=== PATIENT | male | born 1965 | race Caucasian/White ===

== ENCOUNTER 2017-04-05 13:32 | Emergency (ER) | payer OTHER ==
[2017-04-05 14:55] LABS: ABSOLUTE BASOPHILS # (AUTO) 0.1 10^3/uL (0.0-0.2); ABSOLUTE EOSINOPHILS # (AUTO) 0.2 10^3/uL (0.0-0.6); ABSOLUTE LYMPHOCYTES (AUTO) 2.3 10^3/uL (0.5-4.7); ABSOLUTE MONOCYTES (AUTO) 0.7 10^3/uL (0.1-1.4); ABSOLUTE NEUT (AUTO) 5.1 10^3/uL (1.7-8.2); BASOPHILS % (AUTO) 0.9 % (0-2); EOSINOPHILS % (AUTO) 1.8 % (0-6); HEMATOCRIT 48.8 % (37.9-51.0); HEMOGLOBIN 17.3 g/dL (13.5-17.0); HGB HCT DIFFERENCE 3.1; LYMPHOCYTES % (AUTO) 27.3 % (13-45); MEAN CORPUSCULAR HEMOGLOBIN 33.3 pg (27.0-33.4); MEAN CORPUSCULAR HGB CONC 35.5 g/dL (32.0-36.0); MEAN CORPUSCULAR VOLUME 94 fl (80-97); MONOCYTES % (AUTO) 8.7 % (3-13); RED BLOOD COUNT 5.19 10^6/uL (4.35-5.55); RED CELL DISTRIBUTION WIDTH 12.9 % (11.5-14.0); SEGMENTED NEUTROPHILS % (AUTO) 61.3 % (42-78); WHITE BLOOD COUNT 8.4 10^3/uL (4.0-10.5)
[2017-04-05 15:14] LABS: ALANINE AMINOTRANSFERASE 52 U/L (21-72); ALKALINE PHOSPHATASE 105 U/L (38-126); ANION GAP 12 (5-19); ASPARTATE AMINO TRANSFERASE 29 U/L (17-59); BILIRUBIN,DIRECT 0.3 mg/dL (0.0-0.4); BLOOD UREA NITROGEN 16 mg/dL (7-20); CALCIUM 10.6 mg/dL (8.4-10.2); CARBON DIOXIDE 29 mmol/L (22-30); CHLORIDE 102 mmol/L (98-107); CREATININE RESULT 0.96 mg/dL (0.52-1.25); GLUCOSE 101 mg/dL (75-110); POTASSIUM 4.4 mmol/L (3.6-5.0); SODIUM 143.3 mmol/L (137-145); TOTAL PROTEIN 7.7 g/dL (6.3-8.2)
--- NOTE | 2017-04-05 15:15 | ER Document Report ---
ED General - General Chief Complaint: Shortness Of Breath Stated Complaint: SHORTNESS OF BREATH Time Seen by Provider: 04/05/17 14:35 Notes: The patient is a 51-year-old male, past medical history hypertension (not on any medications for several years), current smoker, presents from the [facility] urgent care center after his blood pressure was noticed to be 200/105 and he was having right upper chest pain yesterday. Patient denies current chest pain, nausea, vomiting, shortness of breath, fevers, leg swelling , numbness, tingling, back pain, headache, blurry vision or ataxia. TRAVEL OUTSIDE OF THE [place] IN LAST 30 DAYS: No - Related Data Allergies/Adverse Reactions: No Known Allergies Allergy (Verified 04/05/17 13:33) Past Medical History - General Information source: Patient - Social History Smoking Status: Current Every Day Smoker Frequency of alcohol use: Occasional Drug Abuse: None Family History: Reviewed & Not Pertinent Patient has suicidal ideation: No Patient has homicidal ideation: No Renal/ Medical History: Denies: Hx Peritoneal Dialysis Review of Systems - Review of Systems Notes: REVIEW OF SYSTEMS: CONSTITUTIONAL: -fevers, -chills EENT: -eye pain, -difficulty swallowing, -nasal congestion CARDIOVASCULAR: +chest pain, -syncope. RESPIRATORY: -cough, -SOB GASTROINTESTINAL: -abdominal pain, -nausea, -vomiting, -diarrhea GENITOURINARY: -dysuria, -hematuria MUSCULOSKELETAL: -back pain, -neck pain SKIN: -rash or skin lesions. HEMATOLOGIC: -easy bruising or bleeding. LYMPHATIC: -swollen, enlarged glands. NEUROLOGICAL: -altered mental status or loss of consciousness, -headache, - neurologic symptoms PSYCHIATRIC: -anxiety, -depression. ALL OTHER SYSTEMS REVIEWED AND NEGATIVE. Physical Exam - Vital signs Vitals: Temp Pulse Resp BP Pulse Ox 98.4 F 98 18 197/119 H 97 04/05/17 13:41 04/05/17 13:41 04/05/17 13:41 04/05/17 13:41 04/05/17 13:41 - Notes Notes: PHYSICAL EXAMINATION: GENERAL: Well-appearing, well-nourished and in no acute distress. HEAD: Atraumatic, normocephalic. EYES: Pupils equal round and reactive to light, extraocular movements intact, sclera anicteric, conjunctiva are normal. ENT: nares patent, oropharynx clear without exudates. Moist mucous membranes. NECK: Normal range of motion, supple without lymphadenopathy LUNGS: Breath sounds clear to auscultation bilaterally and equal. No wheezes rales or rhonchi. HEART: Regular rate and rhythm without murmurs ABDOMEN: Soft, nontender, normoactive bowel sounds. No guarding, no rebound. No masses appreciated. EXTREMITIES: Normal range of motion, no pitting or edema. No cyanosis. NEUROLOGICAL: Cranial nerves grossly intact. Normal speech, normal gait. Normal sensory and motor exams. PSYCH: Normal mood, normal affect. SKIN: Warm, Dry, normal turgor, no rashes or lesions noted. Course - Re-evaluation Re-evalutation: Patient appears very well. He was diagnosed with hypertension several years ago , but has not taken any blood pressure medications because he does not have a primary care physician until now. 2 sets of troponins are negative and EKG review from urgent care center does not show any ischemic changes. Chest x-ray does not show any acute changes. Symptoms are atypical for aortic dissection or PE at this time. His HEART score is 3. Will begin amlodipine and have him follow-up with his primary care physician for further evaluation and treatment of his high blood pressure and further evaluation of his chest pain. - Vital Signs Vital signs: Temp Pulse Resp BP Pulse Ox 98.4 F 98 18 197/119 H 97 04/05/17 13:41 04/05/17 13:41 04/05/17 13:41 04/05/17 13:41 04/05/17 13:41 - Laboratory Result Diagrams: 04/05/17 14:46 04/05/17 14:46 Laboratory results interpreted by me: 04/05/17 04/05/17 14:46 14:46 Hgb 17.3 H Calcium 10.6 H - Diagnostic Test Radiology reviewed: Image reviewed, Reports reviewed Radiology results interpreted by me: CXR: NAD - EKG Interpretation by Me EKG shows normal: Sinus rhythm, Hobson, Intervals, QRS Complexes, ST-T Waves Additional EKG results interpreted by me: No STEMI. Discharge - Discharge Clinical Impression: Hypertension Qualifiers: Hypertension type: unspecified Qualified Code(s): I10 - Essential (primary) hypertension Chest pain Qualifiers: Chest pain type: unspecified Qualified Code(s): R07.9 - Chest pain, unspecified Condition: Stable Disposition: HOME, SELF-CARE Additional Instructions: CHEST PAIN OF UNCLEAR CAUSE: The exact cause of your chest pain isn't clear. Fortunately, there is no evidence of a dangerous medical condition. Further testing may be required to find the source of the pain. Most often, we find that this pain is coming from the chest wall -- the muscles or rib joints in the chest. But chest pain can come from the lung and lung lining, the esophagus, the heart valves or heart lining, and even the stomach or gallbladder. Rest. Eat lightly until the pain is gone. We may prescribe medicine for pain and inflammation. You should call the physician immediately if the pain radiates to the shoulder, jaw or arms; if you start to run a fever or develop a cough; or if you develop shortness of breath, or other new or alarming symptoms. NORMAL EXAM AND WORKUP: At this time, your examination and workup show no significant abnormality. No significant abnormal physical findings were noted. All laboratory, EKG, and imaging (x-ray, CT scans, ultrasound) studies that were ordered show no significant abnormality. Although your examination and all studies that were ordered showed no significant abnormal finding, there are no examinations and no studies that are 100% accurate. There is always the possibility that some abnormality could exist and not be detected with physical examination or within the limits and capabilities of laboratory and other studies. You should return or follow up as you were instructed on your visit today for further evaluation if your symptoms do not resolve. CHEST WALL PAIN: Your chest pain may be coming from the chest wall. This is often caused by straining the muscles or joints in the chest during physical activity, direct trauma, coughing, or vigorous vomiting. Persons with arthritis are especially prone to this type of pain, due to inflammation of the cartilage joints near the breast bone. Occasionally, no cause can be found. Rest from strenuous physical activity. This kind of chest pain is usually made worse by movement of the chest. Depending on the symptoms, we may prescribe medicine for pain, muscle relaxation, and antiinflammatory effects. If the pain is new, and seems to be due to muscle strain, cold packs can help. Otherwise, apply gentle warmth to the painful area for 15 minutes every hour or two. You should call contact the doctor immediately if things change. Further evaluation is needed if you develop a fever or cough, if the nature of the pain changes, or if you become short of breath. ANGINA EPISODE: Your physician has diagnosed the pain you experienced as an episode of angina. Angina occurs when a portion of the heart muscle temporarily lacks oxygen. It does not cause any permanent heart damage, but serves as a warning. Hospitalization is not necessary now. Evaluation of your cardiac condition , and medical therapy for angina will be necessary. It's important you be sure to keep all appointments and take medication exactly as prescribed. Angina is usually treated with a type of "nitrate" medication. This is available as ointment, pills, or sublingual (under the tongue) tablets. Depending on your clinical situation, other medications may be added to help control angina. These may include beta blockers or calcium blockers. If episodes of angina are occurring with increased frequency, or if chest pain lasts longer than 15 minutes or does not respond to nitroglycerin, you must seek emergency medical care immediately. FOLLOW-UP CARE: If you have been referred to a physician for follow-up care, call the physician s office for an appointment as you were instructed or within the next two days. If you experience worsening or a significant change in your symptoms, notify the physician immediately or return to the Emergency Department at any time for re-evaluation. HIGH BLOOD PRESSURE REQUIRING TREATMENT: Your blood pressure is high. This is called "hypertension." Today's reading was 197/112 (normal is less than 140/90). Your history and exam suggest that this is not a temporary problem. You need treatment of your blood pressure. If left untreated, high blood pressure greatly increases your risk of heart attack and stroke. Please don't ignore this problem. If you have blood pressure medicine but aren't using it regularly, start taking it again. Some simple things you can do to help are: Get some aerobic exercise for at least 20 minutes on a daily basis. (See your doctor before beginning any new exercise program.) Eat a low-fat diet. Lose excess weight. Avoid salty foods and avoid adding salt to any of the foods you eat. Avoid diet pills, decongestants, "energizing" herbs, and other medicines that elevate blood pressure. There are many different medicines that treat blood pressure. If your medication causes unpleasant side effects, call your doctor. There are others you can try. Treating hypertension is a life-long investment in your health. CALCIUM CHANNEL BLOCKERS: A medication of the calcium channel joss type has been prescribed for you. Examples of this type of medicine are Calan, Isoptin, Procardia, and Cardizem. These medicines have a variety of uses, including prevention of angina attacks, treatment of blood pressure, regulation of certain heart rhythm problems, and prevention of migraine headaches. Calcium channel blockers work by interfering with the flow of calcium in cell membranes. This results in dilation of blood vessels, and slowing of electrical conduction in the heart. A slight dizziness (due to a fall in blood pressure) may occur with the first dose, and sometimes even with later doses. This may make you prone to dizziness if you stand up suddenly. Call the doctor if lightheadedness is severe, or if you develop palpitations, shortness of breath, or any other new or alarming symptoms. FOLLOW-UP CARE: If you have been referred to a physician for follow-up care, call the physician s office for an appointment as you were instructed or within the next two days. If you experience worsening or a significant change in your symptoms, notify the physician immediately or return to the Emergency Department at any time for re-evaluation. Prescriptions: Amlodipine Besylate 5 mg PO DAILY #30 tab Forms: Elevated Blood Pressure Referrals: SHAWNEE BATISTA MD [COMMUNITY BASED STAFF] - Follow up as needed
[2017-04-05] MEDS ORDERED: AMLODIPINE BESYLATE 5 MG TABLET PO ONE (15:39)
--- NOTE | 2017-04-05 16:48 | RADIOLOGY REPORT (SQ) ---
EXAM DESCRIPTION: CHEST PA/LAT COMPLETED DATE/TIME: 04/05/2017 4:36 pm REASON FOR STUDY: SOB COMPARISON: None. EXAM PARAMETERS: NUMBER OF VIEWS: two views TECHNIQUE: Digital Frontal and Lateral radiographic views of the chest acquired. RADIATION DOSE: NA LIMITATIONS: none FINDINGS: LUNGS AND PLEURA: No opacities, masses or pneumothorax. No pleural effusion. MEDIASTINUM AND HILAR STRUCTURES: No masses or contour abnormalities. HEART AND VASCULAR STRUCTURES: Heart normal size. No evidence for failure. BONES: No acute findings. HARDWARE: None in the chest. OTHER: No other significant finding. IMPRESSION: NO SIGNIFICANT RADIOGRAPHIC FINDING IN THE CHEST. TECHNICAL DOCUMENTATION: JOB ID: [id number] [employer]- All Rights Reserved
[2017-04-05 18:49] VITALS: BP 188/122
== END 2017-04-05 18:46 | disposition home or self-care (01) ==
LOC: ER 13:32
DX: I10 Essential (primary) hypertension (principal); R07.9 Chest pain, unspecified; F17.200 Nicotine dependence, unspecified, uncomplicated
CPT/HCPCS: 36415; 71020; 80053; 84484; 85025; 99285

== ENCOUNTER 2017-04-13 17:06 | Emergency (ER) | payer OTHER ==
[~2017-04-13 17:06] MED LIST: TENECTEPLASE INJ 50 MG KIT IV ONE
[2017-04-13] MEDS ORDERED: OXYCODONE-ACETAMINOPHEN 5-325 MG TABLET PO ONE (18:51)
--- NOTE | 2017-04-13 19:06 | ER Document Report ---
ED Medical Screen (RME) - General Mode of Arrival: Ambulatory Information source: Patient TRAVEL OUTSIDE OF THE [place] IN LAST 30 DAYS: No - HPI Exacerbated by: Movement, Deep breathing <ADDIS KIMBROUGH - Last Filed: 04/13/17 19:37> <TERESSAVIMAL ANN - Last Filed: 04/13/17 20:17> - General Chief Complaint: Breathing Difficulty Stated Complaint: DIFFICULTY BREATHING Time Seen by Provider: 04/13/17 18:25 Notes: Patient is a 51 year old male presenting to the emergency department complaining of difficulty breathing and chest tightness onset 1 week ago.Patient states that his symptoms have increasingly worsened over the week. Patient states he was prescribed Amlodipine last week when he was seen for the similar symptoms. Patient states the pain is exacerbated with activity and deep breathing. I have greeted and performed a rapid initial assessment of this patient. A comprehensive ED assessment and evaluation of the patient, analysis of test results and completion of the medical decision making process will be conducted by additional ED providers. (ADDIS KIMBROUGH) - Related Data Allergies/Adverse Reactions: No Known Allergies Allergy (Verified 04/05/17 13:33) Past Medical History - General Information source: Patient - Social History Chew tobacco use (# tins/day): No Frequency of alcohol use: Social Drug Abuse: None - Past Medical History Cardiac Medical History: Reports: Hx Hypertension - "whole life" never on meds Renal/ Medical History: Denies: Hx Peritoneal Dialysis <ADDIS KIMBROUGH - Last Filed: 04/13/17 19:37> Physical Exam - General General appearance: Appears well, Alert In distress: None - HEENT Head: Normocephalic, Atraumatic Eyes: Normal Conjunctiva: Normal - Respiratory Respiratory status: No respiratory distress Chest status: Tender - anterior wall tender to palpation Breath sounds: Normal - Cardiovascular Rhythm: Regular Heart sounds: Normal auscultation <ADDIS KIMBROUGH - Last Filed: 04/13/17 19:37> - Vital signs Vitals: Temp Pulse Resp BP Pulse Ox 98.8 F 107 H 24 H 219/130 H 98 04/13/17 17:13 04/13/17 17:13 04/13/17 17:13 04/13/17 17:13 04/13/17 17:13 Course - Laboratory Result Diagrams: 04/13/17 19:02 04/13/17 19:02 <ADDIS KIMBROUGH - Last Filed: 04/13/17 19:37> - Laboratory Result Diagrams: 04/13/17 19:02 04/13/17 19:02 <VIMAL GANNON - Last Filed: 04/13/17 20:17> - Re-evaluation Re-evalutation: 04/13/17 20:17 I personally performed the services described in the documentation, reviewed and edited the documentation which was dictated to the scribe in my presence, and it accurately records my words and actions. (VIMAL GANNON) - Vital Signs Vital signs: Temp Pulse Resp BP Pulse Ox 98.8 F 107 H 23 H 193/132 H 95 04/13/17 17:13 04/13/17 17:13 04/13/17 20:12 04/13/17 20:12 04/13/17 20:12 - Laboratory Laboratory results interpreted by me: 04/13/17 04/13/17 04/13/17 19:02 19:02 19:02 WBC 14.6 H RBC 5.83 H Hgb 18.9 H Hct 54.4 H Absolute Neutrophils 10.9 H Glucose 141 H Calcium 11.1 H AST 97 H Total Protein 8.7 H Albumin 5.4 H Urine Ketones 20 H Urine Urobilinogen 2.0 H Scribe Documentation - Scribe Written by Ingrid:: Ingrid Wilson, 04/13/2017 19:08 acting as scribe for :: Teressa <ADDIS KIMBROUGH - Last Filed: 04/13/17 19:37>
--- NOTE | 2017-04-13 19:15 | ER Document Report ---
ED General - General Chief Complaint: Breathing Difficulty Stated Complaint: DIFFICULTY BREATHING Time Seen by Provider: 04/13/17 18:25 Mode of Arrival: Ambulatory Information source: Patient Notes: Patient presents emergency department with complaints of back pain radiating to the chest. Patient reports symptoms increase when he takes a deep breath. Reports he felt better after a deep yawn. Denies coughing fever vomiting diarrhea. Denies history of cardiac disease. Denies trauma. He was evaluated for sx on the 05 of April. Prescribed amlodipine, has not taken his medication today. Patient reports he got nervous today because he got a little bit short of breath and dizzy when he stood up. He doesn't have a pcp but has made an appointment with a new pcp next week. TRAVEL OUTSIDE OF THE [place] IN LAST 30 DAYS: No - HPI Onset: Last week Onset/Duration: Persistent Quality of pain: Pressure Pain Level: 1 - since taking percocet reports pain was 4/5 on arrival not 1/5 Associated symptoms: None Exacerbated by: Deep breathing Relieved by: Denies Similar symptoms previously: Yes Recently seen / treated by doctor: Yes - Related Data Allergies/Adverse Reactions: No Known Allergies Allergy (Verified 04/05/17 13:33) Past Medical History - General Information source: Patient - Social History Smoking Status: Current Every Day Smoker Cigarette use (# per day): Yes - 1 ppd Chew tobacco use (# tins/day): No Frequency of alcohol use: Social Drug Abuse: None Occupation: IT, [place]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: Family Family History: Reviewed & Not Pertinent Patient has suicidal ideation: No Patient has homicidal ideation: No - Past Medical History Cardiac Medical History: Reports: Hx Hypertension - "whole life" never on meds Renal/ Medical History: Denies: Hx Peritoneal Dialysis Surgical Hx: Negative Review of Systems - Review of Systems Notes: Review HPI for review of systems., All other systems negative Physical Exam - Vital signs Vitals: Temp Pulse Resp BP Pulse Ox 98.8 F 107 H 24 H 219/130 H 98 04/13/17 17:13 04/13/17 17:13 04/13/17 17:13 04/13/17 17:13 04/13/17 17:13 - Notes Notes: PHYSICAL EXAMINATION: GENERAL: Well-appearing and in no acute distress nontoxic looking HEAD: Atraumatic, normocephalic. EYES: Pupils equal round extraocular movements intact, sclera anicteric, conjunctiva are normal. ENT: nares patent, oropharynx clear without exudates. Moist mucous membranes. NECK: Normal range of motion, supple without lymphadenopathy LUNGS: CTAB and equal. No wheezes rales or rhonchi. HEART: Regular rate and rhythm without murmurs ABDOMEN: Soft, no tenderness. No guarding, no rebound BACK: Denies pain EXTREMITIES: Normal range of motion, no pitting edema. No cyanosis. NEUROLOGICAL: Cranial nerves grossly intact. Normal sensory/motor exams. PSYCH: Normal mood, normal affect. SKIN: Warm, Dry, normal turgor, no rashes or lesions noted Course - Re-evaluation Re-evalutation: 04/14/17 elevated BP noted, patient has not taken his medication today. will check CT, Labs EKG and cardiac enzymes st elevation noted V3, concern for NSTEMI, dr caraballo consulted, request 2nd EKG , Notified by RN increased troponin, Advised by dr caraballo to contact [facility] for transport for NSTEMI, transport center contacted, instructed on nstemi. 2nd EKG completed, increased elevation anterior septal Dr Mcmahon returned call, dr caraballo discussed pt now dx with stemi based on 2nd ekg. discussed tpa, advised to follow our protocal. tpa initiated. called to nurses station for call from [facility]. Dr. Woodruff on the phone, updated on ekg, stemi, requested to speak to my attending, dr caraballo on the phone with dr woodruff. updated on tpa, ekg. patient stable, denies cp, in good spirits. significant other of many years informed of plan of care, flight to [facility] to possibly go to general labor. 04/14/17 22:35 [facility] Flight crew here. pt transferred, stable, denies pain - Vital Signs Vital signs: Temp Pulse Resp BP Pulse Ox 98.8 F 107 H 13 144/105 H 96 04/13/17 17:13 04/13/17 17:13 04/13/17 22:16 04/13/17 22:16 04/13/17 22:16 - Laboratory Result Diagrams: 04/13/17 19:02 04/13/17 19:02 Laboratory results interpreted by me: 04/13/17 04/13/17 04/13/17 19:02 19:02 19:02 WBC 14.6 H RBC 5.83 H Hgb 18.9 H Hct 54.4 H Absolute Neutrophils 10.9 H Glucose 141 H Calcium 11.1 H AST 97 H Creatine Kinase CK-MB (CK-2) Total Protein 8.7 H Albumin 5.4 H Urine Ketones 20 H Urine Urobilinogen 2.0 H 04/13/17 04/13/17 19:02 19:02 WBC RBC Hgb Hct Absolute Neutrophils Glucose Calcium AST Creatine Kinase 769 H CK-MB (CK-2) 52.90 H Total Protein Albumin Urine Ketones Urine Urobilinogen - Diagnostic Test Radiology reviewed: Image reviewed, Reports reviewed - CTA negative - EKG Interpretation by Me Rate: Normal Additional EKG results interpreted by me: 04/14/17 st elevation noted V3, concern for NSTEMI, 2nd EKG completed, increased elevation anterior septal 3rd EKG increased elevation anterior septal Discharge - Discharge Clinical Impression: STEMI (ST elevation myocardial infarction) Qualifiers: Involved coronary artery: unspecified coronary artery Qualified Code(s): I21.3 - ST elevation (STEMI) myocardial infarction of unspecified site Condition: Stable Disposition: [facility]
[2017-04-13 19:27] LABS: ABSOLUTE EOSINOPHILS # (AUTO) 0.1 10^3/uL (0.0-0.6); ABSOLUTE LYMPHOCYTES (AUTO) 2.2 10^3/uL (0.5-4.7); ABSOLUTE MONOCYTES (AUTO) 1.3 10^3/uL (0.1-1.4); ABSOLUTE NEUT (AUTO) 10.9 10^3/uL (1.7-8.2); BASOPHILS % (AUTO) 0.3 % (0-2); EOSINOPHILS % (AUTO) 0.5 % (0-6); HEMATOCRIT 54.4 % (37.9-51.0); HEMOGLOBIN 18.9 g/dL (13.5-17.0); LYMPHOCYTES % (AUTO) 15.1 % (13-45); MEAN CORPUSCULAR HEMOGLOBIN 32.5 pg (27.0-33.4); MEAN CORPUSCULAR HGB CONC 34.8 g/dL (32.0-36.0); MEAN CORPUSCULAR VOLUME 93 fl (80-97); MONOCYTES % (AUTO) 9.1 % (3-13); PLATELET COUNT 229 10^3/uL (150-450); RED BLOOD COUNT 5.83 10^6/uL (4.35-5.55); RED CELL DISTRIBUTION WIDTH 12.7 % (11.5-14.0); TOTAL CELLS COUNTED % (AUTO) 100 %; WHITE BLOOD COUNT 14.6 10^3/uL (4.0-10.5)
[2017-04-13 19:28] LABS: APPEARANCE,URINE SLIGHTLY-CLOUDY; BILIRUBIN,URINE NEGATIVE (NEGATIVE); COLOR,URINE YELLOW; GLUCOSE, URINE NEGATIVE (NEGATIVE); KETONES,URINE 20 mg/dL (NEGATIVE); LEUKOCYTE ESTERASE,URINE NEGATIVE (NEGATIVE); NITRITE,URINE NEGATIVE (NEGATIVE); PROTEIN,URINE NEGATIVE (NEGATIVE); URINE SPECIFIC GRAVITY 1.021
--- NOTE | 2017-04-13 19:33 | RADIOLOGY REPORT (SQ) ---
EXAM DESCRIPTION: CTA CHEST COMPLETED DATE/TIME: 04/13/2017 7:16 pm REASON FOR STUDY: pleuritic CP, evalaute for PE COMPARISON: None. TECHNIQUE: CT scan of the chest performed using helical scanning technique with dynamic intravenous contrast injection. Images reviewed with lung, soft tissue and bone windows. Reconstructed coronal and sagittal MPR images reviewed. Additional 3 dimensional post-processing performed to develop Maximal Intensity Projection images (NH P). All images stored on PACS. All CT scanners at this facility use dose modulation, iterative reconstruction, and/or weight based d osing when appropriate to reduce radiation dose to as low as reasonably achievable (ALARA). [facility]: Dose Right [facility]: CareDose [facility]: Dose Right [facility]: Teradose 4D [facility]: Zoondy CONTRAST TYPE AND DOSE: contrast/concentration: Isovue 370.00 mg/ml; Total Contrast Delivered: 66.0 ml; Total Saline Delivered: 70.0 ml Contrast bolus not optimized for the pulmonary arteries. RENAL FUNCTION: GFR > 60. RADIATION DOSE: CT Rad equipment meets quality standard of care and radiation dose reduction techniq ues were employed. CTDIvol: 14.5 - 24.8 mGy. DLP: 596 mGy-cm. . LIMITATIONS: None. FINDINGS: LUNGS AND PLEURA: No masses, infiltrates, pneumothorax. No pleural effusions, calcificati ons. AORTA AND GREAT VESSELS: No aneurysm. Contrast bolus not optimized for the aorta. HEART: No pericardial effusion. No significant coronary artery calcifications. PULMONARY ARTERIES: No emboli visualized in the main pulmonary arteries or the segmental branches. HILAR AND MEDIASTINAL STRUCTURES: No identified masses or abnormal nodes. HARDWARE: None in the chest. UPPER ABDOMEN: No significant findings. Limited exam. THYROID AND OTHER SOFT TISSUES: No masses. No adenopathy. BONES: No acute or significant finding. 3D MIPS: Confirm above findings. OTHER: No other significant finding. IMPRESSION: No emboli visualized in the main pulmonary arteries or the segmental branches. No acute pulmonary findings. COMMENT: Quality ID # [id number]: Final reports with documentation of one or more dose reduction techniques (e.g., Automated exposure control, adjustment of the mA and/or kV according to patient size, use of iterative reconstruction technique) TECHNICAL DOCUMENTATION: JOB ID: [id number] [place]-72 2010 [employer]- All Rights Reserved
[2017-04-13 19:54] LABS: ALANINE AMINOTRANSFERASE 46 U/L (21-72); ALBUMIN 5.4 g/dL (3.5-5.0); ALKALINE PHOSPHATASE 111 U/L (38-126); ANION GAP 14 (5-19); ASPARTATE AMINO TRANSFERASE 97 U/L (17-59); BILIRUBIN,DIRECT 0.4 mg/dL (0.0-0.4); BILIRUBIN,TOTAL 1.1 mg/dL (0.2-1.3); BLOOD UREA NITROGEN 12 mg/dL (7-20); CALCIUM 11.1 mg/dL (8.4-10.2); CARBON DIOXIDE 29 mmol/L (22-30); CHLORIDE 98 mmol/L (98-107); GLUCOSE 141 mg/dL (75-110); POTASSIUM 4.4 mmol/L (3.6-5.0); SODIUM 140.8 mmol/L (137-145); TOTAL PROTEIN 8.7 g/dL (6.3-8.2)
[2017-04-13] MEDS ORDERED: NORMAL SALINE 1000 ML 1,000 ML IV ONE (20:17)
[2017-04-13 21:03] LABS: CREATINE KINASE MB 52.9 ng/mL (<4.55)
[2017-04-13 21:10] LABS: TROPONIN I 8.82 ng/mL
[2017-04-13] MEDS ORDERED: ASPIRIN 325 MG TABLET PO ONE (21:13)
--- NOTE | 2017-04-13 21:14 | ER Document Report ---
Doctor's Note Notes: 04/13/17 21:12 I was notified about this patient at this time by the nurse practitioner Evita Dodd. We reviewed the patient's case and reviewed the patient's EKG and was immediately quite concerned about what appeared to be a Wellens pattern in V2 3. As we review the EKG the lab called to notify us that the troponin is 8.80. We will immediately anticoagulate the patient with aspirin and Lovenox. We will call cardiology at [facility] for emergent transfer as patient will require cardiac catheterization.
[2017-04-13] MEDS: NITROGLYCERIN 0.4 MG/TAB 25 TAB/BOTTLE SL PRN ×2 (21:20→21:40)
[2017-04-13] MEDS ORDERED: ENOXAPARIN SODIUM INJ 80 MG/0.8 ML DISP.SYRIN SUBCUT SCH (22:00)
[2017-04-13 22:21] VITALS: BP 144/105
--- NOTE | 2017-04-14 12:18 | EKG REPORT ---
SEVERITY:- ABNORMAL ECG - SINUS RHYTHM PROBABLE LEFT ATRIAL ABNORMALITY LAD, CONSIDER LAFB OR INFERIOR INFARCT ANTERIOR INFARCT, RECENT PROLONGED QT INTERVAL : Confirmed by: Camila Lovelace MD 14-Apr-2017 12:17:19
--- NOTE | 2017-04-15 11:04 | EKG REPORT ---
SEVERITY:- ABNORMAL ECG - SINUS RHYTHM LEFT ATRIAL ABNORMALITY LAD, CONSIDER LEFT ANTERIOR FASCICULAR BLOCK ANTEROLATERAL INFARCT, RECENT PROLONGED QT INTERVAL : Confirmed by: Camila Lovelace MD 15-Apr-2017 11:03:32
--- NOTE | 2017-04-17 09:31 | EKG REPORT ---
SEVERITY:- ABNORMAL ECG - SINUS RHYTHM MULTIFORM VENTRICULAR PREMATURE COMPLEXES LEFT ATRIAL ABNORMALITY NONSPECIFIC INTRAVENTRICULAR CONDUCTION DELAY LOW VOLTAGE WITH RIGHT AXIS DEVIATION LEFT VENTRICULAR HYPERTROPHY : Confirmed by: Go Oliver 17-Apr-2017 09:30:08
== END 2017-04-13 22:39 | disposition short-term general hospital (02) ==
LOC: ER 17:06
DX: I21.3 ST elevation (STEMI) myocardial infarction of unspecified site (principal); I10 Essential (primary) hypertension; Z79.899 Other long term (current) drug therapy; R06.02 Shortness of breath; R42 Dizziness and giddiness; M54.9 Dorsalgia, unspecified; F17.210 Nicotine dependence, cigarettes, uncomplicated
CPT/HCPCS: 93005; 99291; 96372; 96361; 96374; 36415; 82553; 82550; 85025; 80053; 81001; 84484; 71275; 93010; J3101; J7030; J1650